=== PATIENT | female | born 1945 | race Caucasian/White ===

== ENCOUNTER 2020-01-23 08:38 | Day surgery (SDC) | payer OTHER ==
[~2020-01-23] VITALS: Ht 157.5 cm; Wt 86.4 kg
[~2020-01-23 08:38] MED LIST: ALLERGY10 MG PO; ATOR10 PO; CARBIDOPA-LEVO1 EA15 PO; CLARITIN10 MG PO; DIPH50; Diphenhist25 MG PO; FLUT.05NI; FLUT1DIS5 INH; Flonase 0.05% N16 GM; LEVSOD75 PO; MELO7.5; MELO7.5 PO; MOBIC15 MG PO; Multivitamin1 EAC1 PO; Suphedrine PE10 MG PO; XOPENEX HFA15 GM; ZYRTEC10 M2 PO
--- NOTE | 2020-01-23 09:14 | NUR ---
01/23/20 0914 MARIAMA BURGOS ONE ATTEMPT IN RH BY MIRI VALVE ONE SUCCESSFUL BY MIRI IN RAC
== END 2020-01-23 10:40 | disposition home or self-care (01) ==
LOC: ORSCSDS 08:38
PROVIDERS: Internal Medicine Gastroenterology
PROC: 0DBN8ZX Excision of Sigmoid Colon, Via Natural or Artificial Opening Endoscopic, Diagnostic (ICD-10-PCS; principal; 2020-01-23 09:45)
DX: Z12.11 Encounter for screening for malignant neoplasm of colon (principal); K63.5 Polyp of colon; K57.30 Diverticulosis of large intestine without perforation or abscess without bleeding; K64.8 Other hemorrhoids; Z86.010 Personal history of colon polyps; I10 Essential (primary) hypertension; Z79.899 Other long term (current) drug therapy
CPT/HCPCS: 88305; J2704; J7120